=== PATIENT | female | born 1955 | race Caucasian/White ===

== ENCOUNTER → 2016-12-20 | Outpatient (CLI) | payer MEDICARE, OTHER ==
--- NOTE | 2016-12-20 08:04 | RADIOLOGY REPORT (SQ) ---
EXAM DESCRIPTION: CT ABD/PELVIS NO ORAL OR IV COMPLETED DATE/TIME: 12/20/2016 7:32 am REASON FOR STUDY: HEMATURIA (R31.9) R31.9 HEMATURIA, UNSPECIFIED COMPARISON: PET/CT exams 12/14/2015, 07/25/2015 TECHNIQUE: CT scan of the abdomen and pelvis performed without intravenous or oral contrast. Images reviewed with lung, soft tissue, and bone windows. Reconstructed coronal and sagittal MPR images revi ewed. All images stored on PACS. All CT scanners at this facility use dose modulation, iterative reconstruction, and/or weight based d osing when appropriate to reduce radiation dose to as low as reasonably achievable (ALARA). [facility]: Dose Right [facility]: CareDose [facility]: Dose Right [facility]: Teradose 4D [facility]: FUJIAN [facility]AN RADIATION DOSE: Up-to-date CT equipment and radiation dose reduction techniques were employed. CTDIv ol: 3.4 mGy. DLP: 169 mGy-cm.mGy. LIMITATIONS: No oral or IV contrast FINDINGS: LOWER CHEST: No significant findings. No nodules or infiltrates. Bilateral breast implant s, post bilateral mastectomy NON-CONTRASTED LIVER, SPLEEN, ADRENALS: Evaluation limited by lack of IV contrast. No identified sign ificant masses. PANCREAS: No masses. No peripancreatic inflammatory changes. GALLBLADDER: No identified stones by CT criteria. No inflammatory changes to suggest cholecystitis. RIGHT KIDNEY AND URETER: No suspicious masses. Assessment limited by lack of IV contrast. No signif icant calcifications. No hydronephrosis or hydroureter. LEFT KIDNEY AND URETER: No suspicious masses. Assessment limited by lack of IV contrast. No signifi cant calcifications. No hydronephrosis or hydroureter. AORTA AND RETROPERITONEUM: No aneurysm. No retroperitoneal masses or adenopathy. BOWEL AND PERITONEAL CAVITY: No obvious masses or inflammatory changes. No free fluid. APPENDIX: Normal. PELVIS, BLADDER, AND ABDOMINAL WALL:Postsurgical changes anterior abdominal wall, with atrophy of the right rectus muscle post tram flap. No free pelvic fluid. Bladder normal. BONES: Benign bone island right innominate bone adjacent to the SI joint OTHER: No other significant finding. IMPRESSION: No CT findings to explain the history of hematuria on non contrasted CT abdomen and pelv is. TECHNICAL DOCUMENTATION: JOB ID: [id number] Quality ID # [id number]: Final reports with documentation of one or more dose reduction techniques (e.g., Au tomated exposure control, adjustment of the mA and/or kV according to patient size, use of iterative reconstruction technique) 2010 [employer]- All Rights Reserved
== END ==
LOC: RAD 07:23
PROVIDERS: ATTEND Internal Medicine
DX: R31.9 Hematuria, unspecified (principal)
CPT/HCPCS: 74176

== ENCOUNTER 2017-02-21 10:52 | Emergency (ER) | payer MEDICARE, OTHER ==
--- NOTE | 2017-02-21 11:35 | ER Document Report ---
ED Medical Screen (RME) - General Chief Complaint: Flank Pain Stated Complaint: FLANK PAIN Time Seen by Provider: 02/21/17 11:33 Notes: Patient had a left kidney biopsy several days ago. She is now having pain in the left flank. Patient's coverer called in and asked that we get an ultrasound and check her laboratory work. Patient denies any blood in her urine. TRAVEL OUTSIDE OF THE [place] IN LAST 30 DAYS: No - Related Data Allergies/Adverse Reactions: diazepam [From Valium] Allergy (Verified 02/21/17 10:57) hydromorphone HCl [From Dilaudid] Allergy (Verified 12/05/11 17:13) morphine [Morphine] Allergy (Verified 12/05/11 17:13) Penicillins Allergy (Verified 12/05/11 17:13) Past Medical History - Social History Chew tobacco use (# tins/day): No Frequency of alcohol use: None Drug Abuse: None Neurological Medical History: Reports: Hx Migraine Renal/ Medical History: Denies: Hx Peritoneal Dialysis Past Surgical History: Reports: Hx Breast Surgery - 1999, 2002, 2008, 2010, Hx Mastectomy - bilateral with reconstruction - Immunizations Hx Diphtheria, Pertussis, Tetanus Vaccination: No History of Influenza Vaccine for 02/2017 - 07/2017 Season: Yes Physical Exam - Vital signs Vitals: Resp 16 02/21/17 10:58 Course - Vital Signs Vital signs: Temp Pulse Resp BP Pulse Ox 97.5 F 93 16 125/84 98 02/21/17 10:59 02/21/17 10:59 02/21/17 10:58 02/21/17 10:59 02/21/17 10:59
[2017-02-21 12:09] LABS: ABSOLUTE BASOPHILS # (AUTO) 0.1 10^3/uL (0.0-0.2); ABSOLUTE EOSINOPHILS # (AUTO) 0.2 10^3/uL (0.0-0.6); ABSOLUTE LYMPHOCYTES (AUTO) 2.8 10^3/uL (0.5-4.7); ABSOLUTE MONOCYTES (AUTO) 0.7 10^3/uL (0.1-1.4); ABSOLUTE NEUT (AUTO) 2.7 10^3/uL (1.7-8.2); BASOPHILS % (AUTO) 0.8 % (0-2); EOSINOPHILS % (AUTO) 2.6 % (0-6); HEMATOCRIT 37.3 % (36.0-47.0); HEMOGLOBIN 13.2 g/dL (12.0-15.5); HGB HCT DIFFERENCE 2.3; LYMPHOCYTES % (AUTO) 43.2 % (13-45); MEAN CORPUSCULAR HEMOGLOBIN 34.1 pg (27.0-33.4); MEAN CORPUSCULAR HGB CONC 35.2 g/dL (32.0-36.0); MEAN CORPUSCULAR VOLUME 97 fl (80-97); MONOCYTES % (AUTO) 11.4 % (3-13); RED BLOOD COUNT 3.86 10^6/uL (3.72-5.28); RED CELL DISTRIBUTION WIDTH 12.1 % (11.5-14.0); WHITE BLOOD COUNT 6.5 10^3/uL (4.0-10.5)
[2017-02-21 12:25] LABS: ALANINE AMINOTRANSFERASE 29 U/L (9-52); ALBUMIN 3.9 g/dL (3.5-5.0); ALKALINE PHOSPHATASE 93 U/L (38-126); ANION GAP 9 (5-19); ASPARTATE AMINO TRANSFERASE 24 U/L (14-36); BILIRUBIN,DIRECT 0.4 mg/dL (0.0-0.4); BILIRUBIN,TOTAL 0.5 mg/dL (0.2-1.3); BLOOD UREA NITROGEN 7 mg/dL (7-20); CALCIUM 9.7 mg/dL (8.4-10.2); CARBON DIOXIDE 29 mmol/L (22-30); CHLORIDE 98 mmol/L (98-107); CREATININE RESULT 0.55 mg/dL (0.52-1.25); GLUCOSE 94 mg/dL (75-110); POTASSIUM 4.6 mmol/L (3.6-5.0); SODIUM 135.5 mmol/L (137-145); TOTAL PROTEIN 7.6 g/dL (6.3-8.2)
--- NOTE | 2017-02-21 12:26 | ER Document Report ---
ED General - General Chief Complaint: Flank Pain Stated Complaint: FLANK PAIN Time Seen by Provider: 02/21/17 11:33 Information source: Patient TRAVEL OUTSIDE OF THE [place] IN LAST 30 DAYS: No - Related Data Allergies/Adverse Reactions: diazepam [From Valium] Allergy (Verified 02/21/17 10:57) hydromorphone HCl [From Dilaudid] Allergy (Verified 12/05/11 17:13) morphine [Morphine] Allergy (Verified 12/05/11 17:13) Penicillins Allergy (Verified 12/05/11 17:13) Past Medical History - Social History Smoking Status: Current Every Day Smoker Chew tobacco use (# tins/day): No Frequency of alcohol use: None Drug Abuse: None Patient has suicidal ideation: No Neurological Medical History: Reports: Hx Migraine Renal/ Medical History: Denies: Hx Peritoneal Dialysis Past Surgical History: Reports: Hx Breast Surgery - 1998, 2002, 2008, 2010, Hx Mastectomy - bilateral with reconstruction - Immunizations Hx Diphtheria, Pertussis, Tetanus Vaccination: No Hx Pneumococcal Vaccination: 12/05/09 Physical Exam - Vital signs Vitals: Resp 16 02/21/17 10:58 Course - Vital Signs Vital signs: Temp Pulse Resp BP Pulse Ox 97.5 F 93 16 125/84 98 02/21/17 10:59 02/21/17 10:59 02/21/17 10:58 02/21/17 10:59 02/21/17 10:59 - Laboratory Result Diagrams: 02/21/17 11:48 02/21/17 11:48 Laboratory results interpreted by me: 02/21/17 11:48 [facility] 34.1 H
[2017-02-21 12:27] LABS: APPEARANCE,URINE CLEAR; BILIRUBIN,URINE NEGATIVE (NEGATIVE); GLUCOSE, URINE NEGATIVE (NEGATIVE); KETONES,URINE NEGATIVE (NEGATIVE); LEUKOCYTE ESTERASE,URINE TRACE (NEGATIVE); NITRITE,URINE NEGATIVE (NEGATIVE); PROTEIN,URINE 100 mg/dL (NEGATIVE); URINE SPECIFIC GRAVITY 1.008; UROBILINOGEN,URINE NEGATIVE mg/dL (<2.0)
[2017-02-21] MEDS ORDERED: OXYCODONE HCL IR 5 MG TABLET PO ONE (12:27)
--- NOTE | 2017-02-21 12:27 | ER Document Report ---
ED General - General Mode of Arrival: Ambulatory Information source: Patient, Outside Facility Records TRAVEL OUTSIDE OF THE [place] IN LAST 30 DAYS: No <CARLOS LEGER - Last Filed: 02/21/17 13:00> <CHADD RENTERIA - Last Filed: 02/21/17 14:12> - General Chief Complaint: Flank Pain Stated Complaint: FLANK PAIN Time Seen by Provider: 02/21/17 11:33 Notes: Patient is a 61-year-old female that presents to the emergency department today with complaints of left flank pain. Patient had a left kidney biopsy 1 week ago secondary to persistent hematuria and proteinuria. The patient's helicopter pilot instructor called ahead and asked for labs and a kidney ultrasound be performed. Patient states that her left flank pain increased yesterday. Patient is in pain management and she has 5 mg Percocets at home however she has been taking two at a time which is unusual for her. Patient states during the procedure she felt like she was "in a director of creative services shop" as she "felt everything ". Patient states she has had no difficulty with urination and has had no gross blood in her urine. (CARLOS LEGER) - Related Data Allergies/Adverse Reactions: diazepam [From Valium] Allergy (Verified 02/21/17 10:57) hydromorphone HCl [From Dilaudid] Allergy (Verified 12/05/11 17:13) morphine [Morphine] Allergy (Verified 12/05/11 17:13) Penicillins Allergy (Verified 12/05/11 17:13) Past Medical History - General Information source: Patient, [facility] Records, Outside Facility Records - Social History Smoking Status: Current Every Day Smoker Cigarette use (# per day): Yes Chew tobacco use (# tins/day): No Frequency of alcohol use: None Drug Abuse: None Lives with: Family Family History: Reviewed & Not Pertinent Patient has suicidal ideation: No Neurological Medical History: Reports: Hx Migraine Past Surgical History: Reports: Hx Breast Surgery - 1999, 2002, 2008, 2010, Hx Mastectomy - bilateral with reconstruction, Other - Hx left kidney biopsy - Immunizations Hx Diphtheria, Pertussis, Tetanus Vaccination: No Hx Pneumococcal Vaccination: 12/05/09 <CARLOS LEGER - Last Filed: 02/21/17 13:00> <CHADD RENTERIA - Last Filed: 02/21/17 14:12> - Medical History Notes: Hx lupus, chronic pain (CARLOS LEGER) Review of Systems - Review of Systems Constitutional: No symptoms reported. denies: Fever EENT: No symptoms reported Cardiovascular: No symptoms reported Respiratory: No symptoms reported Gastrointestinal: No symptoms reported Genitourinary: See HPI, Flank pain - left. denies: Hematuria Female Genitourinary: No symptoms reported Musculoskeletal: No symptoms reported Skin: No symptoms reported Hematologic/Lymphatic: No symptoms reported Neurological/Psychological: No symptoms reported -: Yes All other systems reviewed and negative <CARLOS LEGER - Last Filed: 02/21/17 13:00> Physical Exam <CARLOS LEGER - Last Filed: 02/21/17 13:00> <CHADD RENTERIA - Last Filed: 02/21/17 14:12> - Vital signs Vitals: Resp 16 02/21/17 10:58 - Notes Notes: Physical Exam: General: Alert, appears uncomfortable. HEENT: Normocephalic. Atraumatic. PERRL. Extraocular movements intact. Oropharynx clear. Neck: Supple. Non-tender. Respiratory: No respiratory distress. Clear and equal breath sounds bilaterally. Cardiovascular: Regular rate and rhythm. Abdominal: Normal Inspection. Non-tender. No distension. Normal Bowel Sounds. Back: Complains of left flank pain, left flank tenderness with light palpation. Puncture dipak in left lumbar area consistent with recent injection. Slight swelling surrounding injection site, no erythema or bruising. Extremities: Moves all four extremities. Upper extremities: Normal inspection. Normal ROM. Lower extremities: Normal inspection. No edema. Normal ROM. Neurological: Normal cognition. AAOx4. Normal speech. Psychological: Normal affect. Normal Mood. Skin: Warm. Dry. Normal color. (CARLOS LEGER) Course - Laboratory Result Diagrams: 02/21/17 11:48 02/21/17 11:48 <CARLOS LEGER - Last Filed: 02/21/17 13:00> - Laboratory Result Diagrams: 02/21/17 11:48 02/21/17 11:48 - Diagnostic Test Radiology reviewed: Reports reviewed <CHADD RENTERIA - Last Filed: 02/21/17 14:12> - Re-evaluation Re-evalutation: 02/21/17 14:09 Patient's ultrasound shows a hematoma at the left kidney. Blood tests look good. No sign of urinary tract infection. Renal function is good. Reassessment of the patient finds her more comfortable than when she first arrived. I reviewed the results with her. She appears to be relieved. She will follow-up with her helicopter pilot instructor in [place]. Currently she has a follow- up appointment for March 10. I have advised her to call the helicopter pilot instructor to discuss her results as well. (CHADD RENTERIA) - Vital Signs Vital signs: Temp Pulse Resp BP Pulse Ox 97.5 F 93 16 125/84 98 02/21/17 10:59 02/21/17 10:59 02/21/17 10:58 02/21/17 10:59 02/21/17 10:59 - Laboratory Laboratory results interpreted by me: 02/21/17 02/21/17 02/21/17 11:45 11:48 11:48 [facility] 34.1 H Sodium 135.5 L Urine Protein 100 H Urine Blood LARGE H Ur Leukocyte Esterase TRACE H Discharge <CARLOS LEGER - Last Filed: 02/21/17 13:00> <CHADD RENTERIA - Last Filed: 02/21/17 14:12> - Discharge Condition: Good Disposition: HOME, SELF-CARE Instructions: Flank Pain ([facility]) Additional Instructions: Your blood tests and urinalysis looked good. Your ultrasound shows a small hematoma at the left kidney. Continue to take her pain medication as previously prescribed. Return to the emergency department if you have worsening pain, fever, or other urgent concerns. See your helicopter pilot instructor as scheduled or sooner. Scribe Documentation - Scribe Written by Judit:: Judit Guajardo, 02/21/2017 1315 acting as scribe for :: Ayla <CARLOS LEGER - Last Filed: 02/21/17 13:00>
--- NOTE | 2017-02-21 13:40 | RADIOLOGY REPORT (SQ) ---
EXAM DESCRIPTION: U/S RETROPERITON (RENAL/AORTA) COMPLETED DATE/TIME: 02/21/2017 1:27 pm REASON FOR STUDY: pain at site of left kidney biopsy COMPARISON: CT abdomen pelvis 12/20/2016 TECHNIQUE: Dynamic and static grayscale images acquired of the kidneys and bladder and recorded on P ACS. Additional selected color Doppler and spectral images recorded. LIMITATIONS: None. FINDINGS: RIGHT KIDNEY: Normal size, 11.4 cm in length. Normal echogenicity. No solid or suspicious masses. No hydronephrosis. No calcifications. LEFT KIDNEY: Normal size, 10.1 cm in length. Normal echogenicity. No solid or suspicious masses. No hydronephrosis. No calcifications. Patient had an ultrasound-guided renal biopsy at [facility] 02/14/2017. Inferior to the left lower pole kidney, a 4 x 2.7 x 2 cm hypoechoic fluid collection with low level internal echoes is present. No internal color flow. This most likely represents a small hematoma adjacent to the lower pole ki dney. BLADDER: No masses. OTHER FINDINGS: No other significant finding. IMPRESSION: Normal kidneys and bladder at ultrasound. 4 x 2.7 x 2 cm hypoechoic complex fluid collection adjacent to the lower pole left kidney, likely a h ematoma TECHNICAL DOCUMENTATION: JOB ID: [id number] [employer]- All Rights Reserved
[2017-02-21 14:36] VITALS: BP 116/75
== END 2017-02-21 14:37 | disposition home or self-care (01) ==
LOC: ER 10:52
DX: R10.9 Unspecified abdominal pain (principal); G89.18 Other acute postprocedural pain; N02.9 Recurrent and persistent hematuria with unspecified morphologic changes; R80.9 Proteinuria, unspecified; Z79.899 Other long term (current) drug therapy; F17.210 Nicotine dependence, cigarettes, uncomplicated
CPT/HCPCS: 99284; 36415; 85025; 80053; 81001; 76770; A9270

== ENCOUNTER → 2017-03-17 | Outpatient (CLI) | payer MEDICARE, OTHER ==
--- NOTE | 2017-03-17 11:22 | RADIOLOGY REPORT (SQ) ---
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 PET-CT 2015. TECHNIQUE: CT scan of the chest performed using helical scanning technique with dynamic intravenous contrast injection. Images reviewed with lung, soft tissue and bone windows. Reconstructed coronal a nd sagittal MPR images reviewed. All images stored on PACS. All CT scanners at this facility use dose modulation, iterative reconstruction, and/or weight based d osing when appropriate to reduce radiation dose to as low as reasonably achievable (ALARA). [facility]: Dose Right [facility]: CareDose [facility]: Dose Right [facility]: Teradose 4D [facility]: [employer] ([place] IT RADIATION DOSE: Up-to-date CT equipment and radiation dose reduction techniques were employed. CTDIv ol: 4.4 - 4.8 mGy. DLP: 683 mGy-cm.. LIMITATIONS: None. FINDINGS: AXILLAE: No adenopathy. CHEST WALL: No mass. Bilateral reconstruction with intact breast implants. LUNGS: No nodules or masses. No pneumothorax. No infiltrates. PLEURA: No effusions. No calcifications. THYROID: No masses or significant asymmetry. HILAR AND MEDIASTINAL STRUCTURES: No abnormal nodes or mass. Slight thickening of the distal esophag eal wall, potentially simply artifact. No esophageal dilatation or significant hiatal hernia. AORTA AND GREAT VESSELS: No aneurysm. No dissection. PULMONARY ARTERIES: No identified pulmonary emboli. Study not optimized for the pulmonary arteries. HEART: No pericardial effusion. HARDWARE AND LIFELINES: None. BONES: No significant finding. OTHER: No other significant finding. IMPRESSION: 1. No acute or suspicious thoracic abnormality. COMPARISON: As above. RADIATION DOSE: Up-to-date CT equipment and radiation dose reduction techniques were employed. CTDIv ol: 4.4 - 4.8 mGy. DLP: 683 mGy-cm.mGy. TECHNIQUE: CT scan of the abdomen and pelvis performed with intravenous and oral contrast using torito jean-claude scanning technique with dynamic intravenous contrast injection. Images reviewed with lung, soft tissue and bone windows. Reconstructed coronal and sagittal MPR images reviewed. Delayed images for evaluation of the urinary system also acquired and evaluated. All images stored on PACS. All CT scanners at this facility use dose modulation, iterative reconstruction, and/or weight based d osing when appropriate to reduce radiation dose to as low as reasonably achievable (ALARA). [facility]: Dose Right [facility]: [employer] [facility]: Dose Right [facility]: Teradose 4D [facility]: [employer] ([place]) IT FINDINGS: LIVER: Normal size. No masses. No dilated ducts. SPLEEN: Normal size. No focal lesions. PANCREAS: No masses. No significant calcifications. No adjacent inflammation or peripancreatic flui d collections. Pancreatic duct not dilated. GALLBLADDER: No identified stones by CT criteria. No inflammatory changes to suggest cholecystitis. ADRENAL GLANDS: No significant masses or asymmetry. RIGHT KIDNEY AND URETER: No solid masses. No significant calcification. No hydronephrosis or hydroure ter. LEFT KIDNEY AND URETER: No solid masses. No significant calcification. No hydronephrosis or hydrouret er. AORTA AND VESSELS: No aortic aneurysm or dissection. Generally patent major arterial branches. No v enous clot. RETROPERITONEUM: No retroperitoneal adenopathy, hemorrhage or masses. LARGE AND SMALL BOWEL: The colon is diffusely distended with stool. No dilated small bowel loops. N o overt ascites or abnormal gas or bulky adenopathy. APPENDIX: Normal. ABDOMINAL WALL: No hernia. Deep ventral subcutaneous midline calcification, chronic. PERITONEAL CAVITY: No free air. No free fluid. No peritoneal implants or masses. PELVIS: No mass or free fluid. Normal bladder. BONES: No fracture or worrisome bone lesion. Mild bilateral femoral head AVN without subchondral col lapse. OTHER: No other significant finding. IMPRESSION: 1. No acute or suspicious abdominopelvic abnormality. 2. Mild bilateral femoral head A VN without subchondral collapse. 3. Constipation. TECHNICAL DOCUMENTATION: JOB ID: [id number] Quality ID # [id number]: Final reports with documentation of one or more dose reduction techniques (e.g., Au tomated exposure control, adjustment of the mA and/or kV according to patient size, use of iterative reconstruction technique) 2010 [employer]- All Rights Reserved
== END ==
LOC: RAD 08:25
PROVIDERS: ATTEND Internal Medicine
DX: R31.9 Hematuria, unspecified (principal); Z85.3 Personal history of malignant neoplasm of breast; K59.00 Constipation, unspecified
CPT/HCPCS: 71260; 74177

== ENCOUNTER 2017-04-11 12:47 | Emergency (ER) | payer MEDICARE, OTHER ==
[2017-04-11 12:58] VITALS: BP 121/85
== END 2017-04-11 13:43 | disposition left against medical advice (07) ==
LOC: ER 12:47
DX: Z53.21 Procedure and treatment not carried out due to patient leaving prior to being seen by health care provider (principal); R56.9 Unspecified convulsions